=== PATIENT | female | born 1990 | race Caucasian/White ===

== ENCOUNTER 2017-03-07 22:08 | Emergency (ER) | payer OTHER ==
[~2017-03-07] VITALS: Ht 165.1 cm; Wt 80.2 kg
[2017-03-07 22:48] VITALS: BP 131/83
== END 2017-03-07 23:40 | disposition home or self-care (01) ==
LOC: ED 23:30
DX: R07.2 Precordial pain (principal)
CPT/HCPCS: 36415; 71045; 84484; 93005; 99285

== ENCOUNTER → 2017-05-18 | Outpatient (CLI) | payer OTHER | END | disposition home or self-care (01) | LOC: EDSTATUS 07:00 → CVU 07:19 | PROVIDERS: ATTEND Internal Medicine Cardiovascular Disease | DX: R94.31 Abnormal electrocardiogram [ECG] [EKG] (principal); R07.9 Chest pain, unspecified | CPT/HCPCS: 93306 ==

== ENCOUNTER → 2017-05-27 | Outpatient (CLI) | payer OTHER ==
[2017-05-27 11:43] LABS: CHLORIDE 106 mmol/L (98-107)
[2017-05-27 12:00] LABS: ALANINE AMINOTRANSFERASE 18 U/L (12-78); ALBUMIN 4.1 g/dL (3.4-5.0); ALKALINE PHOSPHATASE 71 U/L (45-117); ANION GAP 11 mmol/L (5-15); BILIRUBIN,TOTAL 0.9 mg/dL (0.2-1.0); CALCIUM 8.9 mg/dL (8.5-10.1); CHOL/HDL RATIO 2.8; CHOLESTEROL, TOTAL 139 mg/dL (140-239); CREATININE 0.84 mg/dL (0.55-1.02); HDL CHOL % 36 % (28-40); HDL CHOLESTEROL (DIRECT) 50 mg/dL (40-60); LDL CHOLESTEROL,CALCULATED 72 mg/dL (54-169); LDL/HDL RATIO 1.4 (0.5-3.0); TOTAL PROTEIN 7.8 g/dL (6.4-8.2); TRIGLYCERIDES 84 mg/dL (50-200); VLDL CHOLESTEROL 17 mg/dL (0-25)
== END | disposition home or self-care (01) ==
LOC: LAB 11:01
PROVIDERS: ATTEND Physician Assistant Medical
DX: Z11.9 Encounter for screening for infectious and parasitic diseases, unspecified (principal); R07.89 Other chest pain; R30.0 Dysuria
CPT/HCPCS: 80053; 80061; 86592; 86706; 86803; 87340; 87491; 87591; 87806; G0475

== ENCOUNTER → 2018-04-20 | Outpatient (CLI) | payer OTHER | END | disposition home or self-care (01) | LOC: LAB 11:33 | PROVIDERS: ATTEND Advanced Practice Midwife | DX: Z32.01 Encounter for pregnancy test, result positive (principal) | CPT/HCPCS: 36415; 84702 ==

== ENCOUNTER → 2018-04-22 | Outpatient (CLI) | payer OTHER | END | disposition home or self-care (01) | LOC: LAB 07:45 | PROVIDERS: ATTEND Advanced Practice Midwife | DX: Z32.01 Encounter for pregnancy test, result positive (principal) | CPT/HCPCS: 36415; 84702 ==

== ENCOUNTER → 2018-04-28 | Outpatient (CLI) | payer OTHER | END | disposition home or self-care (01) | LOC: LAB 16:49 | PROVIDERS: ATTEND Advanced Practice Midwife | DX: Z34.01 Encounter for supervision of normal first pregnancy, first trimester (principal) | CPT/HCPCS: 36415; 84702 ==

== ENCOUNTER → 2018-05-09 | Outpatient (CLI) | payer OTHER ==
[2018-05-09 18:01] LABS: MICROSCOPIC NOT IND
[2018-05-09 18:24] LABS: BASOPHILS # (AUTO) 0.04 x10^3/uL (0-0.1); BASOPHILS % (AUTO) 1 % (0-1); EOSINOPHILS # (AUTO) 0.13 x10^3/uL (0-0.4); EOSINOPHILS % (AUTO) 2 % (1-7); LYMPHOCYTES # (AUTO) 1.99 x10^3/uL (1-3.4); LYMPHOCYTES % (AUTO) 25 % (22-44); MEAN CORPUSCULAR HGB CONC 34.6 g/dL (32.4-35.8); MEAN CORPUSCULAR VOLUME 92.7 fL (80-100); MEAN PLATELET VOLUME 10.5 fL (7.4-10.4); MONOCYTES # (AUTO) 0.36 x10^3/uL (0.2-0.8); MONOCYTES % (AUTO) 5 % (2-9); NEUTROPHILS # (AUTO) 5.51 x10^3/uL (1.8-6.8); NEUTROPHILS % (AUTO) 69 % (42-75); PLATELET COUNT 177 x10^3/uL (130-400); RED BLOOD COUNT 4.31 x10^6/uL (3.82-5.3); RED CELL DISTRIBUTION WIDTH 12.8 % (9.6-15.2)
[2018-05-09 18:25] LABS: MD NO
[2018-05-09 19:01] LABS: CULTURE INDICATED? NO
== END | disposition home or self-care (01) ==
LOC: LAB 17:01
PROVIDERS: ATTEND Advanced Practice Midwife
DX: Z34.01 Encounter for supervision of normal first pregnancy, first trimester (principal); Z3A.00 Weeks of gestation of pregnancy not specified
CPT/HCPCS: 36415; 81003; 85025; 86592; 86762; 86787; 86850; 86900; 87340; 87806; G0475

== ENCOUNTER → 2018-07-11 | Outpatient (CLI) | payer OTHER ==
[2018-07-11 14:59] LABS: MICROSCOPIC NOT IND
== END | disposition home or self-care (01) ==
LOC: LAB 14:42
PROVIDERS: ATTEND Advanced Practice Midwife
DX: N39.0 Urinary tract infection, site not specified (principal)
CPT/HCPCS: 81003

== ENCOUNTER 2018-08-17 12:52 | Emergency (ER) | payer OTHER ==
[~2018-08-17] VITALS: Ht 165.1 cm; Wt 91.8 kg
--- NOTE | 2018-08-17 13:16 | NUR ---
PT WITH C/O CP, INTERMITTANT CP X4 DAYS. PT TOOK PULSE OX AT HOME HR WAS 80-140 FOR HR. PT DESCRIBES SOB/CP "HEAVINESS" IN CHEST. 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 ERMD IN TO EVAL PT, ORDERS RECEIEVED
[2018-08-17 13:57] LABS: BASOPHILS # (AUTO) 0.02 x10^3/uL (0-0.1); BASOPHILS % (AUTO) 0 % (0-1); EOSINOPHILS # (AUTO) 0.06 x10^3/uL (0-0.4); EOSINOPHILS % (AUTO) 1 % (1-7); LYMPHOCYTES # (AUTO) 1.47 x10^3/uL (1-3.4); LYMPHOCYTES % (AUTO) 16 % (22-44); MD NO; MEAN CORPUSCULAR HEMOGLOBIN 32.3 pg (27.0-34.8); MEAN CORPUSCULAR HGB CONC 33.7 g/dL (32.4-35.8); MEAN CORPUSCULAR VOLUME 95.8 fL (80-100); MEAN PLATELET VOLUME 9.5 fL (7.4-10.4); MONOCYTES # (AUTO) 0.72 x10^3/uL (0.2-0.8); MONOCYTES % (AUTO) 8 % (2-9); NEUTROPHILS # (AUTO) 7.04 x10^3/uL (1.8-6.8); NEUTROPHILS % (AUTO) 76 % (42-75); PLATELET COUNT 239 x10^3/uL (130-400); RED BLOOD COUNT 3.89 x10^6/uL (3.82-5.3); RED CELL DISTRIBUTION WIDTH 13.3 % (9.6-15.2)
[2018-08-17 13:59] LABS: MICROSCOPIC NOT IND
[2018-08-17 14:05] LABS: CULTURE INDICATED? NO
--- NOTE | 2018-08-17 14:05 | NUR ---
THROUGHPUT RN: SPOKE W/ L&D WHO STATES THEY WILL SEND SOMEONE DOWN TO DO HEART TONES.
[2018-08-17 14:06] LABS: ALANINE AMINOTRANSFERASE 17 U/L (12-78); ALBUMIN 2.8 g/dL (3.4-5.0); ANION GAP 8 mmol/L (5-15); CALCIUM 8.9 mg/dL (8.5-10.1); CHLORIDE 107 mmol/L (98-107); CREATININE 0.57 mg/dL (0.55-1.02)
[2018-08-17 14:10] LABS: ALKALINE PHOSPHATASE 86 U/L (45-117); BILIRUBIN,TOTAL 0.3 mg/dL (0.2-1.0); T4 (THYROXINE) 13.2 mcg/dL (4.8-13.9); TOTAL PROTEIN 6.5 g/dL (6.4-8.2); TROPONIN I < 0.015 ng/mL (0.000-0.045)
[2018-08-17 14:16] LABS: THYROID STIMULATING HORMONE 0.688 mIU/L (0.358-3.740)
--- NOTE | 2018-08-17 14:32 | NUR ---
PT UP TO BR WITH STEADY GAIT, REPEAT EKG OREDERED, TECH TO COMPLETE.
[2018-08-17 14:33] VITALS: BP 122/68
--- NOTE | 2018-08-17 15:23 | NUR ---
PT REPEAT EKG COMPLETED, PT DENIES PAIN/SOB AT THIS TIME. DISCHARGE ORDERS RECEIEVED, PT GIVEN INSTRUCTIONS, UNDERSTANDING STATED BY PT AND SIG OTHER, PT ESCORTED TO CHECKOUT
== END 2018-08-17 15:26 | disposition home or self-care (01) ==
LOC: ED 14:17
DX: O26.892 Other specified pregnancy related conditions, second trimester (principal); R00.2 Palpitations; Z3A.21 21 weeks gestation of pregnancy
CPT/HCPCS: 36415; 71045; 80053; 81003; 83735; 84436; 84443; 84484; 85025; 93005; 99284

== ENCOUNTER → 2018-09-11 | Outpatient (CLI) | payer OTHER ==
[2018-09-11 12:42] LABS: BASOPHILS # (AUTO) 0.02 x10^3/uL (0-0.1); BASOPHILS % (AUTO) 0 % (0-1); EOSINOPHILS # (AUTO) 0.07 x10^3/uL (0-0.4); EOSINOPHILS % (AUTO) 1 % (1-7); LYMPHOCYTES # (AUTO) 1.45 x10^3/uL (1-3.4); LYMPHOCYTES % (AUTO) 22 % (22-44); MD NO; MEAN CORPUSCULAR HEMOGLOBIN 31.3 pg (27.0-34.8); MEAN CORPUSCULAR HGB CONC 33.4 g/dL (32.4-35.8); MEAN CORPUSCULAR VOLUME 93.9 fL (80-100); MONOCYTES # (AUTO) 0.64 x10^3/uL (0.2-0.8); MONOCYTES % (AUTO) 10 % (2-9); NEUTROPHILS # (AUTO) 4.52 x10^3/uL (1.8-6.8); NEUTROPHILS % (AUTO) 67 % (42-75); PLATELET COUNT 313 x10^3/uL (130-400); RED BLOOD COUNT 3.64 x10^6/uL (3.82-5.3); RED CELL DISTRIBUTION WIDTH 13.1 % (9.6-15.2)
== END | disposition home or self-care (01) ==
LOC: LAB 11:32
PROVIDERS: ATTEND Advanced Practice Midwife
DX: Z34.02 Encounter for supervision of normal first pregnancy, second trimester (principal)
CPT/HCPCS: 36415; 82950; 85025; 86592

== ENCOUNTER 2018-10-31 20:28 | Outpatient (CLI) | payer OTHER ==
[~2018-10-31] VITALS: Ht 165.1 cm; Wt 96.8 kg
[2018-10-31 20:32] VITALS: BP 118/64
== END 2018-10-31 21:19 | disposition home or self-care (01) ==
LOC: LDOP 20:28
PROVIDERS: ATTEND Obstetrics & Gynecology Maternal & Fetal Medicine
DX: O36.8130 Decreased fetal movements, third trimester, not applicable or unspecified (principal); Z3A.31 31 weeks gestation of pregnancy
CPT/HCPCS: 59025; 99211; G0463

== ENCOUNTER 2018-12-12 12:12 | Inpatient (IN) | payer OTHER ==
[~2018-12-12] VITALS: Ht 165.1 cm; Wt 100.0 kg
[2018-12-12 20:29] VITALS: BP 136/74
[2018-12-12] MEDS ORDERED: OXYTOCIN 30U/ 0.9% NaCL 500ML 500 ML IV ONE (21:02)
[2018-12-12] MEDS ORDERED: ONDANSETRON 2MG/ML, 2ML IVPush PRN (21:30)
[2018-12-12] MEDS ORDERED: MISOPROSTOL 25 MCG TABLET PO PRN (21:30)
[2018-12-12] MEDS ORDERED: TERBUTALINE 1 MG/ML, 1ML SQ PRN (21:30)
[2018-12-12] MEDS ORDERED: TERBUTALINE 1 MG/ML, 1ML IVPush PRN (21:30)
[2018-12-12 21:47] LABS: BASOPHILS # (AUTO) 0.33 x10^3/uL (0-0.1); BASOPHILS % (AUTO) 3 % (0-1); EOSINOPHILS # (AUTO) 0.06 x10^3/uL (0-0.4); EOSINOPHILS % (AUTO) 1 % (1-7); LYMPHOCYTES # (AUTO) 2.26 x10^3/uL (1-3.4); LYMPHOCYTES % (AUTO) 23 % (22-44); MD NO; MEAN CORPUSCULAR HEMOGLOBIN 30.4 pg (27.0-34.8); MEAN CORPUSCULAR HGB CONC 33.2 g/dL (32.4-35.8); MEAN CORPUSCULAR VOLUME 91.5 fL (80-100); MEAN PLATELET VOLUME 10.2 fL (7.4-10.4); MONOCYTES # (AUTO) 0.97 x10^3/uL (0.2-0.8); MONOCYTES % (AUTO) 10 % (2-9); NEUTROPHILS # (AUTO) 6.15 x10^3/uL (1.8-6.8); NEUTROPHILS % (AUTO) 63 % (42-75); PLATELET COUNT 260 x10^3/uL (130-400); RED CELL DISTRIBUTION WIDTH 14.2 % (9.6-15.2)
[2018-12-12] MEDS ORDERED: MISOPROSTOL 25 MCG TABLET ONE (23:02)
[2018-12-12] MEDS: LACTATED RINGERS 1,000 ML IV SCH (23:06)
[2018-12-12] MEDS: MISOPROSTOL 25 MCG TABLET VG PRN (23:15)
[2018-12-13] MEDS ORDERED: MISOPROSTOL 25 MCG TABLET ONE ×4 (04:12→19:23)
[2018-12-13] MEDS: MISOPROSTOL 25 MCG TABLET VG PRN ×3 (04:26→14:25)
[2018-12-13] MEDS: CALCIUM CARBONATE 500 MG TAB.CHEW PO PRN (04:26)
[2018-12-13] MEDS ORDERED: CALCIUM CARBONATE 500 MG TAB.CHEW ONE (04:27)
[2018-12-13] MEDS ORDERED: NEWBORN KIT ONE (05:51)
[2018-12-13] MEDS ORDERED: FENTANYL PF 100 MCG/2ML ONE (20:02)
[2018-12-13] MEDS ORDERED: ONDANSETRON 2MG/ML, 2ML IVPush PRN (20:30)
[2018-12-13] MEDS ORDERED: FENTANYL PF 100 MCG/2ML IVPush PRN (20:30)
[2018-12-13] MEDS ORDERED: FENTANYL PF 100 MCG/2ML IV PRN (20:30)
[2018-12-13] MEDS ORDERED: FENTANYL/BUPIV./NS/PF 250 ML EPIDCONT SCH (20:59)
[2018-12-13] MEDS ORDERED: LACTATED RINGERS 1,000 ML IVBOLUS PRN ×2 (21:00→22:00)
[2018-12-13] MEDS ORDERED: FENTANYL PF 500 MCG, BUPIVACAINE/PF 0.5%, 30ML 62.5 ML in SODIUM CHLORIDE 0.9% 177.5 ML EPIDCONT SCH (21:30)
[2018-12-13] MEDS: LACTATED RINGERS 1,000 ML IV SCH ×2 (21:34→22:52)
[2018-12-13] MEDS ORDERED: NALOXONE 0.4 MG/ML, 1ML IVPush PRN (22:00)
[2018-12-13] MEDS ORDERED: FENTANYL PF 500 MCG, BUPIVACAINE/PF 0.5%, 30ML 62.5 ML in SODIUM CHLORIDE 0.9% 177.5 ML IV SCH (22:00)
[2018-12-13] MEDS ORDERED: EPHEDRINE 50 MG/ML, 1ML IVPush PRN (22:00)
[2018-12-13] MEDS ORDERED: EPHEDRINE 50 MG/ML, 1ML ONE (23:16)
[2018-12-14] MEDS ORDERED: CALCIUM CARBONATE 500 MG TAB.CHEW ONE ×2 (03:31→10:06)
[2018-12-14] MEDS: LACTATED RINGERS 1,000 ML IV SCH ×4 (05:34→21:34)
[2018-12-14] MEDS ORDERED: ALUMINUM/MAG/SIMETHICONE 30 ML UDC ONE (06:48)
[2018-12-14] MEDS ORDERED: ALUMINUM/MAG/SIMETHICONE 30 ML UDC PO PRN (07:00)
[2018-12-14 07:30] VITALS: BP 116/56
[2018-12-14] MEDS ORDERED: OXYTOCIN 30U/ 0.9% NaCL 500ML 500 ML ONE (09:01)
[2018-12-14] MEDS: CALCIUM CARBONATE 500 MG TAB.CHEW PO PRN (10:08)
[2018-12-14] MEDS ORDERED: SIMETHICONE 80 MG CHEW TAB PO PRN (12:30)
[2018-12-14] MEDS ORDERED: CARBOPROST TROMETHAMINE 250 MCG/ML, 1ML IM PRN (12:30)
[2018-12-14] MEDS ORDERED: OXYcodone IR 5MG TABLET PO PRN (12:30)
[2018-12-14] MEDS ORDERED: MISOPROSTOL 200 MCG TABLET PR PRN (12:30)
[2018-12-14] MEDS ORDERED: METHYLERGONOVINE 0.2 MG/ML IM PRN (12:30)
[2018-12-14] MEDS ORDERED: ONDANSETRON 2MG/ML, 2ML IV PRN (12:30)
[2018-12-14] MEDS ORDERED: ACETAMINOPHEN 325 MG TABLET PO PRN (12:30)
[2018-12-14] MEDS: IBUPROFEN 600 MG TABLET PO PRN ×2 (13:22→19:22)
[2018-12-14] MEDS: OXYTOCIN 30U/ 0.9% NaCL 500ML 500 ML IV SCH ×2 (13:23→22:30)
[2018-12-14 14:40] VITALS: BP 122/76
[2018-12-14] MEDS: DOCUSATE 100 MG CAPSULE PO PRN (18:17)
[2018-12-14 20:09] LABS: BASOPHILS # (AUTO) 0.02 x10^3/uL (0-0.1); BASOPHILS % (AUTO) 0 % (0-1); EOSINOPHILS # (AUTO) 0.07 x10^3/uL (0-0.4); EOSINOPHILS % (AUTO) 0 % (1-7); LYMPHOCYTES % (AUTO) 9 % (22-44); MD NO; MEAN CORPUSCULAR HEMOGLOBIN 30.7 pg (27.0-34.8); MEAN CORPUSCULAR HGB CONC 33.2 g/dL (32.4-35.8); MEAN CORPUSCULAR VOLUME 92.7 fL (80-100); MEAN PLATELET VOLUME 9.6 fL (7.4-10.4); MONOCYTES % (AUTO) 6 % (2-9); NEUTROPHILS # (AUTO) 13.87 x10^3/uL (1.8-6.8); NEUTROPHILS % (AUTO) 84 % (42-75); PLATELET COUNT 265 x10^3/uL (130-400); RED BLOOD COUNT 3.79 x10^6/uL (3.82-5.3); RED CELL DISTRIBUTION WIDTH 14.2 % (9.6-15.2)
[2018-12-14] MEDS: OXYcodone/APAP 5/325MG TABLET PO PRN (20:26)
[2018-12-14 20:40] VITALS: BP 126/83
[2018-12-15 00:45] VITALS: BP 126/77
[2018-12-15] MEDS: IBUPROFEN 600 MG TABLET PO PRN ×4 (01:43→21:53)
[2018-12-15 05:00] VITALS: BP 97/69
[2018-12-15] MEDS: OXYcodone/APAP 5/325MG TABLET PO PRN ×5 (05:00→21:56)
[2018-12-15] MEDS: LACTATED RINGERS 1,000 ML IV SCH (05:34)
[2018-12-15] MEDS: OXYTOCIN 30U/ 0.9% NaCL 500ML 500 ML IV SCH ×2 (08:30→18:30)
[2018-12-15 08:35] VITALS: BP 116/65
[2018-12-15] MEDS: DOCUSATE 100 MG CAPSULE PO PRN ×2 (08:50→20:25)
[2018-12-15] MEDS: PRENATAL VIT/IRON/FA 1 EACH TABLET PO SCH (08:50)
[2018-12-15 20:00] VITALS: BP 108/68
[2018-12-16] MEDS: OXYTOCIN 30U/ 0.9% NaCL 500ML 500 ML IV SCH ×2 (04:30→06:02)
[2018-12-16] MEDS: IBUPROFEN 600 MG TABLET PO PRN (06:05)
[2018-12-16] MEDS: OXYcodone/APAP 5/325MG TABLET PO PRN ×2 (06:13→10:28)
[2018-12-16] MEDS: DOCUSATE 100 MG CAPSULE PO PRN (10:28)
[2018-12-16] MEDS: PRENATAL VIT/IRON/FA 1 EACH TABLET PO SCH (10:28)
[2018-12-16] MEDS ORDERED: IBUP-1222 PO (10:31)
[2018-12-16] MEDS ORDERED: OXYC-302 PO (10:31)
[2018-12-16] MEDS ORDERED: DOCU-131 PO (10:31)
[2018-12-16 10:38] VITALS: BP 133/87
== END 2018-12-16 13:08 | disposition home or self-care (01) | DRG 805 ==
LOC: LDIP 20:15 → 2NW 12-14 14:35
PROVIDERS: ADMIT Obstetrics & Gynecology Maternal & Fetal Medicine; ATTEND Obstetrics & Gynecology Maternal & Fetal Medicine
PROC: 10E0XZZ Delivery of Products of Conception, External Approach (ICD-10-PCS; principal; 2018-12-14)
PROC: 0KQM0ZZ Repair Perineum Muscle, Open Approach (ICD-10-PCS; 2018-12-14)
PROC: 3E0R3BZ Introduction of Anesthetic Agent into Spinal Canal, Percutaneous Approach (ICD-10-PCS; 2018-12-14)
PROC: 00HU33Z Insertion of Infusion Device into Spinal Canal, Percutaneous Approach (ICD-10-PCS; 2018-12-14)
DX: O26.62 Liver and biliary tract disorders in childbirth (principal); K83.1 Obstruction of bile duct; Z37.0 Single live birth; Z3A.37 37 weeks gestation of pregnancy; O70.1 Second degree perineal laceration during delivery
CPT/HCPCS: 36415; S0020; 85025; 86850; 86900; G0378; J3010; J2590; J7050; J7120

== ENCOUNTER → 2020-08-11 | Outpatient (CLI) | payer OTHER ==
[~2020-08-11] MED LIST: DOCU-131 PO; IBUP-1222 PO; OXYC1TAB14 PO
[2020-08-11 15:19] LABS: BASOPHILS % (AUTO) 1 % (0-1); EOSINOPHILS % (AUTO) 1 % (1-7); LYMPHOCYTES % (AUTO) 26 % (22-44); MEAN CORPUSCULAR HEMOGLOBIN 31.7 pg (27.0-34.8); MEAN CORPUSCULAR HGB CONC 34.4 g/dL (32.4-35.8); MEAN PLATELET VOLUME 9.7 fL (7.4-10.4); MONOCYTES % (AUTO) 9 % (2-9); NEUTROPHILS % (AUTO) 64 % (42-75); PLATELET COUNT 259 x10^3/uL (130-400); RED BLOOD COUNT 4.36 x10^6/uL (3.82-5.3); RED CELL DISTRIBUTION WIDTH 13.2 % (9.6-15.2)
[2020-08-11 15:22] LABS: MICROSCOPIC NOT IND
== END | disposition home or self-care (01) ==
LOC: LAB 14:46
PROVIDERS: ATTEND Advanced Practice Midwife
DX: Z34.80 Encounter for supervision of other normal pregnancy, unspecified trimester (principal); Z3A.00 Weeks of gestation of pregnancy not specified
CPT/HCPCS: 36415; 81003; 81220; 81329; 85025; 86592; 86762; 86787; 86803; 86850; 86900; 87340; 87806; G0475

== ENCOUNTER 2020-08-25 10:31 | Emergency (ER) | payer OTHER ==
[~2020-08-25] VITALS: Ht 167.6 cm; Wt 94.5 kg
[2020-08-25 10:34] VITALS: BP 124/78
[2020-08-25] MEDS ORDERED: ACETAMINOPHEN 325 MG TABLET PO ONE (11:00)
[2020-08-25] MEDS ORDERED: ACETAMINOPHEN 325 MG TABLET ONE (11:00)
== END 2020-08-25 11:32 | disposition home or self-care (01) ==
LOC: ED 11:15
DX: O26.891 Other specified pregnancy related conditions, first trimester (principal); S83.411A Sprain of medial collateral ligament of right knee, initial encounter; Z3A.10 10 weeks gestation of pregnancy; X50.1XXA Overexertion from prolonged static or awkward postures, initial encounter; Y93.89 Activity, other specified; Y92.89 Other specified places as the place of occurrence of the external cause; Y99.8 Other external cause status
CPT/HCPCS: 29505; 99283

== ENCOUNTER → 2020-09-10 | Outpatient (CLI) | payer OTHER | END | disposition home or self-care (01) | LOC: RAD 13:02 | PROVIDERS: ATTEND Nurse Practitioner Family | DX: S82.144A Nondisplaced bicondylar fracture of right tibia, initial encounter for closed fracture (principal); S83.411A Sprain of medial collateral ligament of right knee, initial encounter; M25.561 Pain in right knee; M25.461 Effusion, right knee; X58.XXXA Exposure to other specified factors, initial encounter; Y93.89 Activity, other specified; Y92.89 Other specified places as the place of occurrence of the external cause; Y99.8 Other external cause status ==